=== PATIENT | female | born 1975 | race Native Hawaiian/Other Pacific Islander ===

== ENCOUNTER 2018-07-28 17:25 | Emergency (ER) | payer OTHER ==
[~2018-07-28] VITALS: Ht 172.7 cm; Wt 135.2 kg
[~2018-07-28 17:25] MED LIST: FLEXERIL PO; IBUPROFEN 800800 M1 PO; NORCO 5-325 TA1 EACH PO; PREDNISONE50 MG PO
[2018-07-28 19:20] VITALS: BP 112/66
== END 2018-07-28 19:20 | disposition home or self-care (01) ==
LOC: M.ERS 17:25
DX: R51 Headache (principal); J30.2 Other seasonal allergic rhinitis; Z90.710 Acquired absence of both cervix and uterus

== ENCOUNTER 2019-08-10 16:48 | Emergency (ER) | payer OTHER ==
[~2019-08-10] VITALS: Ht 170.2 cm; Wt 117.9 kg
[2019-08-10] MEDS ORDERED: ROBAXIN 750 MG750 MG PO (17:49)
[2019-08-10] MEDS ORDERED: KEFLEX500 M1 PO (17:49)
[2019-08-10 18:20] VITALS: BP 116/71
== END 2019-08-10 18:21 | disposition home or self-care (01) ==
LOC: M.ERS 16:48
DX: S81.811A Laceration without foreign body, right lower leg, initial encounter (principal); S70.311A Abrasion, right thigh, initial encounter; Z90.710 Acquired absence of both cervix and uterus; W22.8XXA Striking against or struck by other objects, initial encounter; Y92.89 Other specified places as the place of occurrence of the external cause; Y93.89 Activity, other specified; Y99.8 Other external cause status

== ENCOUNTER 2021-10-19 17:55 | Emergency (ER) | payer OTHER ==
[~2021-10-19] VITALS: Ht 172.7 cm; Wt 131.5 kg
[~2021-10-19 17:55] MED LIST changes: +KEFLEX500 M1 PO; +ROBAXIN 750 MG750 MG PO
[2021-10-19] MEDS ORDERED: MEDROLDOSEPACK PO (20:38)
[2021-10-19] MEDS ORDERED: APAP W/CODEINE1 TA2 PO (20:38)
[2021-10-19 21:01] VITALS: BP 122/53
== END 2021-10-19 21:01 | disposition home or self-care (01) ==
LOC: M.ERS 17:55
DX: M79.604 Pain in right leg (principal); Z90.710 Acquired absence of both cervix and uterus